=== PATIENT | female | born 1995 | race Asian ===

== ENCOUNTER 2018-02-20 22:43 | Emergency (ER) | payer OTHER ==
[2018-02-21 00:24] LABS: HBSAB Concentration 5.84 mIU/mL; HIV (1/2) Antibody/Antigen Non-Reactive (NonReactive); HIV 1/2 INDEX 0.14 S/CO (<1.00); Hep B Surf AB Non-Reactive (NonReactive); Hep C IgG Ab Non-Reactive (NonReactive); Hep C Index 0.15 S/CO (0-0.79)
== END 2018-02-20 23:18 | disposition home or self-care (01) ==
LOC: ERS 22:43
DX: S60.413A Abrasion of left middle finger, initial encounter (principal); Z57.8 Occupational exposure to other risk factors; W26.8XXA Contact with other sharp object(s), not elsewhere classified, initial encounter; J45.909 Unspecified asthma, uncomplicated
CPT/HCPCS: 36415; 86706; 86803; 87389; 99283